=== PATIENT | female | born 1985 | race African-American/Black ===

== ENCOUNTER 2020-03-23 11:32 | Observation (INO) | payer OTHER ==
[~2020-03-23] VITALS: Ht 170.2 cm; Wt 65.8 kg
[~2020-03-23 11:32] MED LIST: CEPH-569 PO; FERR1TAB84 PO; PRENATAL ONE T1 EACH PO
== END 2020-03-23 13:20 | disposition home or self-care (01) ==
LOC: 8 EST LDRP 11:32
PROVIDERS: ADMIT Obstetrics & Gynecology; ATTEND Obstetrics & Gynecology
DX: O26.893 Other specified pregnancy related conditions, third trimester (principal); R10.30 Lower abdominal pain, unspecified; Z3A.39 39 weeks gestation of pregnancy
CPT/HCPCS: 59025; G0378; 99281

== ENCOUNTER 2020-09-23 11:53 | Emergency (ER) | payer OTHER, MEDICAID ==
[~2020-09-23] VITALS: Ht 170.2 cm; Wt 61.0 kg
[2020-09-23] MEDS ORDERED: KETOROLAC 60MG/2ML VIAL IM ONE (14:45)
[2020-09-23] MEDS ORDERED: LIDO1ADH5 TP (16:05)
[2020-09-23] MEDS ORDERED: IBUP-2028 MT (16:05)
[2020-09-23 16:42] VITALS: BP 127/87
== END 2020-09-23 16:43 | disposition home or self-care (01) ==
LOC: ER 11:53
DX: S16.1XXA Strain of muscle, fascia and tendon at neck level, initial encounter (principal); M79.18 Myalgia, other site; V49.40XA Driver injured in collision with unspecified motor vehicles in traffic accident, initial encounter; Y93.89 Activity, other specified; Y92.410 Unspecified street and highway as the place of occurrence of the external cause
CPT/HCPCS: 73030; 81025; 96372; 99283; J1885

== ENCOUNTER 2022-12-23 07:11 | Emergency (ER) | payer OTHER, MEDICAID ==
[~2022-12-23] VITALS: Ht 170.2 cm; Wt 53.0 kg
[~2022-12-23 07:11] MED LIST changes: -CEPH-569 PO; -FERR1TAB84 PO; +IBUP-2028 MT; +LIDO1ADH5 TP; -PRENATAL ONE T1 EACH PO
[2022-12-23 07:23] VITALS: TEMP 98.6; O2SAT 100
[2022-12-23] MEDS ORDERED: KETOROLAC 60MG/2ML VIAL IM ONE (08:00)
[2022-12-23 08:32] LABS: BASOPHILS % 0.7 % (0.0-2.0); EOSINOPHILS % 0.8 % (0.0-5.0); HEMATOCRIT. 43.3 % (36.0-48.0); HEMOGLOBIN. 14.4 g/dL (12.0-16.0); LYMPHOCYTES % 56.9 % (20.0-50.0); MEAN CORPUSCULAR HEMOGLOBIN 28.7 pg (28.0-32.0); MEAN CORPUSCULAR HGB CONC 33.3 g/dL (31.0-37.0); MEAN CORPUSCULAR VOLUME 86.1 fL (81.0-99.0); MEAN PLATELET VOLUME 8.5 fl (7.4-10.4); MONOCYTES % 10.9 % (2.0-8.0); NEUTROPHILS % 30.7 % (40.0-76.0); PLATELET 263 x1000/uL (130-400); RED BLOOD CELL COUNT 5.02 mill/uL (4.2-5.4); RED CELL DISTRIBUTION WIDTH 13.2 % (11.6-14.6); WHITE BLOOD COUNT 3.4 x1000/uL (4.5-11.0)
[2022-12-23 08:44] LABS: CHLORIDE 108 mEq/L (98-107); INDEX HEMOLYSI 1 (1-3); INDEX ICTERIC 2 (1-4); INDEX LIPEMIC 1 (1-3); POTASSIUM 3.5 mEq/L (3.5-5.1); SODIUM 138 mEq/L (136-145)
[2022-12-23 08:52] LABS: ALANINE AMINOTRANSFERASE 21 IU/L (13-61); ALBUMIN 4.6 g/dL (3.4-5.0); ASPARTATE AMINOTRANSFERASE 14 IU/L (15-37); BILIRUBIN TOTAL 2.5 mg/dL (0.1-1.0); CALCIUM 9.5 mg/dL (8.5-10.1); CARBON DIOXIDE 21 mEq/L (21-32); CREATININE 0.7 mg/dL (0.6-1.3); GLUCOSE 97 mg/dL (70-105); NT PRO B-TYPE NATRIURETIC PEP 26 pg/mL (5-125); PROTEIN TOTAL 8.3 g/dL (6.0-8.3); TROPONIN I HIGH SENSITIVITY 4 ng/L (<54); UREA NITROGEN BLOOD 10 mg/dL (7-21)
[2022-12-23 09:04] VITALS: BP 109/67; PULSE 100; RESP 18
[2022-12-23] MEDS ORDERED: TOPUD PO (09:34)
[2022-12-23 10:11] LABS: BG BASE EXCESS -0.6 mmol/L (-2.0-2.0); BG CARBOXYHEMOGLOBIN 0.4 % (0.5-1.5); BG DEOXYHEMOGLOBIN 0.9 % (0.0-5.0); BG HCO3 ACT 16.7 mmol/L (22.0-26.0); BG OXYGEN SATURATION 99.1 % (92.0-98.5); BG OXYHEMOGLOBIN 98.7 % (94.0-97.0); BG PCO2 15.2 mmHg (35.0-45.0); BG PH 7.658 (7.350-7.450); BG SAMPLE SITE RIGHT RADIAL; BG TOTAL HEMOGLOBIN 14.7 g/dL (12.0-18.0); BG VENT MODE ROOM AIR
== END 2022-12-23 10:01 | disposition home or self-care (01) ==
LOC: ER 07:17
DX: M54.50 Low back pain, unspecified (principal)
CPT/HCPCS: 99284; 71045; 80053; 81025; 83880; 85025; 84484; 36415; 72100; 82805; 82375; 96372; 36600; J1885